=== PATIENT | male | born 1985 | race African-American/Black ===

== ENCOUNTER 2017-01-23 14:17 | Emergency (ER) | payer SELFPAY ==
[~2017-01-23] VITALS: Ht 172.7 cm; Wt 95.3 kg
[2017-01-23 14:35] VITALS: BP 142/92
[2017-01-23] MEDS ORDERED: IBUP-1060 PO (14:46)
[2017-01-23] MEDS ORDERED: AMOX875T PO (14:46)
[2017-01-23] MEDS ORDERED: CHLO15MO2 PO (14:46)
--- NOTE | 2017-01-23 15:12 | PHYS DOC ---
Past Medical History Past Medical History: No Pertinent History Past Surgical History: Other Additional Past Surgical Histo: L) rotator cuff, testicle Alcohol Use: Occasionally Drug Use: None Adult General Chief Complaint Chief Complaint: EARACHE/EAR PAIN HPI HPI Patient is a 31 year old male who presents with left ear pain, symptoms of 3 weeks, also with dental pain, no fevers. He attempted Tylenol that improved his symptoms but then his symptoms returned. It is not been seen by primary care physician, reports he's never been seen by dentist. Review of Systems Review of Systems Constitutional: Denies fever or chills [] Eyes: Denies change in visual acuity, redness, or eye pain [] HENT: Reports allergies with runny nose Respiratory: Denies cough or shortness of breath [] Cardiovascular: Denies Chest pain GI: Denies abdominal pain, nausea, vomiting, bloody stools or diarrhea [] : Denies dysuria or hematuria [] Musculoskeletal: Denies back pain or joint pain [] Integument: Denies rash or skin lesions [] Neurologic: Denies headache, focal weakness or sensory changes [] Allergies Allergies Allergies Coded Allergies Type Severity Reaction Last Updated Verified No Known Drug Allergies 03/01/14 No Physical Exam Physical Exam Constitutional: Well developed, well nourished, no acute distress, non-toxic appearance. [] HENT: Normocephalic, atraumatic, bilateral external ears normal, oropharynx moist, poor dentition throughout with fractured tooth number ~11 with surrounding erythema of the buccal fold, decay, left-sided facial swelling, no trismus, uvula rises midline, left TM is full of fluid, normal light reflex, no significant external tenderness to palpation Eyes: PERRLA, EOMI, conjunctiva normal, no discharge. [] Neck: Normal range of motion, no tenderness, supple, no stridor. [] Cardiovascular:Heart rate regular rhythm, no murmur [] Lungs & Thorax: Bilateral breath sounds clear to auscultation [] Abdomen: Bowel sounds normal, soft, no tenderness, no masses, no pulsatile masses. [] Skin: Warm, dry, no erythema, no rash. [] Back: No tenderness, no CVA tenderness. [] Extremities: No tenderness, no cyanosis, no clubbing, ROM intact, no edema. [] Neurologic: Alert and oriented X 3, normal motor function, normal sensory function, no focal deficits noted. [] Psychologic: Affect normal, judgement normal, mood normal. [] Current Patient Data Vital Signs Vital Signs Date Time Temp Pulse Resp B/P (MAP) Pulse Ox O2 Delivery O2 Flow Rate FiO2 01/23/17 14:35 98.4 99 18 99 Room Air 98.4 EKG EKG [] Radiology/Procedures Radiology/Procedures [] Course & Med Decision Making Course & Med Decision Making Pertinent Labs and Imaging studies reviewed. (See chart for details) Patient has a dental abscess, likely causing some referral of pain to his ear. We'll treat with amoxicillin and Peridex, dental resource list given. Return precautions given, work note, ibuprofen prescription. Dragon Disclaimer Dragon Disclaimer This electronic medical record was generated, in whole or in part, using a voice recognition dictation system. Departure Departure Impression: Primary Impression: Dental infection Disposition: HOME, SELF-CARE Condition: STABLE Patient Instructions: Dental Abscess, Form - Excuse from Work, School, or Physical Activity Scripts Chlorhexidine Gluconate (PERIDEX) 15 Ml Mouthwash 15-30 ML PO BID, #473 ML 3 Refills swish and spit Prov: ISREAL ALEXANDRE MD 01/23/17 Amoxicillin (AMOXICILLIN) 875 Mg Tablet 1 TAB PO BID, #20 TAB Prov: ISRAEL ALEXANDRE MD 01/23/17 Ibuprofen (IBUPROFEN) 800 Mg Tablet 800 MG PO PRN TID Y for PAIN, #20 TAB take with food or milk to avoid upsetting stomach Prov: ISRAEL ALEXANDRE MD 01/23/17 ISRAEL ALEXANDRE MD January 23, 2017 15:12
== END 2017-01-23 14:54 | disposition home or self-care (01) ==
LOC: ER 14:17
DX: K04.7 Periapical abscess without sinus (principal)
CPT/HCPCS: 99283

== ENCOUNTER 2018-08-02 21:35 | Emergency (ER) | payer BC ==
[~2018-08-02] VITALS: Ht 172.7 cm; Wt 95.3 kg
[~2018-08-02 21:35] MED LIST: AMOX875T PO; CHLO15MO2 PO; IBUP-1060 PO
[2018-08-02 21:49] VITALS: BP 131/76
[2018-08-02] MEDS ORDERED: ASPIRIN 325 MG TABLET PO ONE (22:00)
--- NOTE | 2018-08-02 22:05 | PHYS DOC ---
Past Medical History Past Medical History: No Pertinent History Past Surgical History: Other Additional Past Surgical Histo: L) rotator cuff, testicle Alcohol Use: Occasionally Drug Use: None Adult General Chief Complaint Chief Complaint: CHEST WALL PAIN HPI HPI Patient is a 32 year old male with no significant medical history who presents to the ED today complaining of 5 out of 10 intermittent sharp left-sided chest pain that began 30 minutes prior to coming to the ED. Patient denies anything exacerbating or making his pain better. He states he was sitting down watching a movie when the pain began. Patient denies the pain radiating. Denies any fever coughing or congestion. Patient denies any history of family members dying before the age of 50 from sudden cardiac arrest. Review of Systems Review of Systems Constitutional: Denies fever or chills [] Eyes: Denies change in visual acuity, redness, or eye pain [] HENT: Denies nasal congestion or sore throat [] Respiratory: Denies cough or shortness of breath [] Cardiovascular: Reports left sided chest pain. GI: Denies abdominal pain, nausea, vomiting, bloody stools or diarrhea [] : Denies dysuria or hematuria [] Musculoskeletal: Denies back pain or joint pain [] Integument: Denies rash or skin lesions [] Neurologic: Denies headache, focal weakness or sensory changes [] All other systems were reviewed and found to be within normal limits, except as documented in this note. Current Medications Current Medications Current Medications Medications (Trade) Dose Ordered Sig/Janiya Start Time Stop Time Status Last Admin Dose Admin Aspirin (Kandis Aspirin) 325 mg 1X ONCE 08/02/18 22:00 08/02/18 22:01 DC 08/02/18 22:26 325 MG Potassium Chloride (Klor-Con) 40 meq 1X ONCE 08/02/18 22:45 08/02/18 22:46 DC 08/02/18 23:07 40 MEQ Allergies Allergies Allergies Coded Allergies Type Severity Reaction Last Updated Verified No Known Drug Allergies 03/01/14 No Physical Exam Physical Exam Constitutional: Well developed, well nourished, no acute distress, non-toxic appearance. [] HENT: Normocephalic, atraumatic, bilateral external ears normal, oropharynx moist, no oral exudates, nose normal. [] Eyes: PERRLA, EOMI, conjunctiva normal, no discharge. [] Neck: Normal range of motion, no tenderness, supple, no stridor. [] Cardiovascular:Heart rate regular rhythm, no murmur, reproducible left sided chest pain on palpation of the chest Lungs & Thorax: Bilateral breath sounds clear to auscultation [] Abdomen: Bowel sounds normal, soft, no tenderness, no masses, no pulsatile masses. Skin: Warm, dry, no erythema, no rash. [] Back: No tenderness, no CVA tenderness. [] Extremities: No tenderness, no cyanosis, no clubbing, ROM intact, no edema. [] Neurologic: Alert and oriented X 3, normal motor function, normal sensory function, no focal deficits noted. [] Psychologic: Affect normal, judgement normal, mood normal. [] Current Patient Data Vital Signs Vital Signs Date Time Temp Pulse Resp B/P (MAP) Pulse Ox O2 Delivery O2 Flow Rate FiO2 08/02/18 21:49 98.3 98 20 131/76 (94) 97 Room Air 98.3 Lab Values Laboratory Tests Test 08/02/18 22:05 White Blood Count 6.2 x10^3/uL (4.0-11.0) Red Blood Count 4.92 x10^6/uL (4.30-5.70) Hemoglobin 15.5 g/dL (13.0-17.5) Hematocrit 45.7 % (39.0-53.0) Mean Corpuscular Volume 93 fL (79-100) Mean Corpuscular Hemoglobin 31 pg (25-35) Mean Corpuscular Hemoglobin Concent 34 g/dL (31-37) Red Cell Distribution Width 13.6 % (11.5-14.5) Platelet Count 228 x10^3/uL (140-400) Neutrophils (%) (Auto) 47 % (31-73) Lymphocytes (%) (Auto) 43 % (24-48) Monocytes (%) (Auto) 7 % (0-9) Eosinophils (%) (Auto) 3 % (0-3) Basophils (%) (Auto) 1 % (0-3) Neutrophils # (Auto) 2.9 x10^3uL (1.8-7.7) Lymphocytes # (Auto) 2.6 x10^3/uL (1.0-4.8) Monocytes # (Auto) 0.4 x10^3/uL (0.0-1.1) Eosinophils # (Auto) 0.2 x10^3/uL (0.0-0.7) Basophils # (Auto) 0.0 x10^3/uL (0.0-0.2) Sodium Level 142 mmol/L (136-145) Potassium Level 3.2 mmol/L (3.5-5.1) L Chloride Level 108 mmol/L (98-107) H Carbon Dioxide Level 25 mmol/L (21-32) Anion Gap 9 (6-14) Blood Urea Nitrogen 10 mg/dL (8-26) Creatinine 1.1 mg/dL (0.7-1.3) Estimated GFR (Cockcroft-Gault) 93.3 Glucose Level 106 mg/dL (70-99) H Calcium Level 8.6 mg/dL (8.5-10.1) Magnesium Level 1.9 mg/dL (1.8-2.4) Troponin I Quantitative < 0.017 ng/mL (0.000-0.055) Laboratory Tests 08/02/18 22:05 Laboratory Tests 08/02/18 22:05 EKG EKG 22:[address] Ludwig sinus rhythm heart rate 88 no STEMI[] Radiology/Procedures Radiology/Procedures [] Course & Med Decision Making Course & Med Decision Making Pertinent Labs and Imaging studies reviewed. (See chart for details) This is a 32-year-old male patient presenting to the ED today with left-sided chest pain that began 30 minutes prior to coming to the ED. EKG, troponin, CBC with no acute findings, chest x-ray interpreted by Dr. Ludwig is negative for any acute findings. BMP with potassium of 3.2, patient was given oral potassium replacement. Patient is in no distress. He was discharged to home. Instructed to take Tylenol Motrin for pain. Follow-up with his own doctor or the provided outside sales representative insurance in the course of this week. Dragon Disclaimer Dragon Disclaimer This electronic medical record was generated, in whole or in part, using a voice recognition dictation system. Departure Departure Impression: Primary Impression: Chest pain Disposition: HOME, SELF-CARE Condition: STABLE Referrals: NO PCP (PCP) MIRIAN COLLINS MD follow up in the course of this week Patient Instructions: Chest Pain (Nonspecific), [id number] Additional Instructions: You were evaluated in the emergency room for chest pain. We could not find any acute cause for your chest pain your work up was negative for any acute findings. Take Tylenol/Motrin for pain. Follow-up with your own doctor in the course of this week, you can also follow up with the provided doctor. Problem Qualifiers Primary Impression: Chest pain Chest pain type: unspecified Qualified Codes: R07.9 - Chest pain, unspecified SILVIANO SINCLAIR APRN Aug 02, 2018 22:05
[2018-08-02 22:18] LABS: BASO % 1 % (0-3); EOS # 0.2 x10^3/uL (0.0-0.7); EOS % 3 % (0-3); HEMATOCRIT 45.7 % (39.0-53.0); HEMOGLOBIN 15.5 g/dL (13.0-17.5); LYMPH # 2.6 x10^3/uL (1.0-4.8); LYMPH % 43 % (24-48); MEAN CORPUSCULAR HEMOGLOBIN 31 pg (25-35); MEAN CORPUSCULAR HGB CONC 34 g/dL (31-37); MEAN CORPUSCULAR VOLUME 93 fL (79-100); MONO # 0.4 x10^3/uL (0.0-1.1); MONO % 7 % (0-9); NEUT # 2.9 x10^3uL (1.8-7.7); NEUT % 47 % (31-73); PLATELET COUNT 228 x10^3/uL (140-400); RED BLOOD COUNT 4.92 x10^6/uL (4.30-5.70); RED CELL DISTRIBUTION WIDTH 13.6 % (11.5-14.5); WHITE BLOOD COUNT 6.2 x10^3/uL (4.0-11.0)
[2018-08-02 22:25] LABS: CALCIUM 8.6 mg/dL (8.5-10.1); CREATININE 1.1 mg/dL (0.7-1.3); GFR 93.3; MAGNESIUM 1.9 mg/dL (1.8-2.4); POTASSIUM 3.2 mmol/L (3.5-5.1)
[2018-08-02] MEDS ORDERED: POTASSIUM CHLORIDE 20 MEQ TABLET.ER. PO ONE (22:45)
--- NOTE | 2018-08-03 00:38 | RAD ---
Chest radiograph 08/02/2018 9:49 PM INDICATION: Chest pain COMPARISON: Chest radiograph January 30, 2015 TECHNIQUE: Frontal view of the chest is provided. FINDINGS: The cardiomediastinal silhouette is within normal limits. There are no pleural effusions. There is no pulmonary vascular congestion. There is no pneumothorax. The lungs are clear. No significant osseous abnormality is identified. IMPRESSION: No acute cardiopulmonary process. Electronically signed by: Coretta Díaz MD (08/03/2018 12:35 AM) [facility]
--- NOTE | 2018-08-03 07:10 | EKG ---
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
== END 2018-08-02 23:36 | disposition home or self-care (01) ==
LOC: ER 21:35
DX: R07.89 Other chest pain (principal)
CPT/HCPCS: 36415; 71045; 80048; 83735; 84484; 85025; 93005; 99283; 99285

== ENCOUNTER 2018-11-03 19:02 | Emergency (ER) | payer SELFPAY ==
[~2018-11-03] VITALS: Ht 172.7 cm; Wt 86.2 kg
[2018-11-03 19:30] VITALS: BP 143/77
[2018-11-03] MEDS ORDERED: TRAM50TA PO (19:43)
[2018-11-03] MEDS ORDERED: CYCL5TAB PO (19:43)
--- NOTE | 2018-11-03 19:49 | PHYS DOC ---
Past Medical History Past Medical History: No Pertinent History (SY BOYKIN APRN) Past Surgical History: Other Additional Past Surgical Histo: L) rotator cuff, testicle (SY BOYKIN APRN) Alcohol Use: Occasionally Drug Use: None (SY BOYKIN APRN) Adult General Chief Complaint Chief Complaint: LOWER BACK PAIN OR INJURY [employer] HPI Patient is a 33 year old male who presents with back pain after he fell earlier today on the ice. The patient states that the pain is been increasing as the day has progressed. He has tried [id number] pain reliever with no relief. He denies spontaneous loss of bowel or bladder, saddle numbness or foot drop. (SY BOYKIN APRN) Review of Systems Review of Systems Constitutional: Denies fever or chills [] Respiratory: Denies cough or shortness of breath [] Cardiovascular: No additional information not addressed in HPI [] GI: Denies abdominal pain, nausea, vomiting, bloody stools or diarrhea [] : Denies dysuria or hematuria [] Musculoskeletal: See history of present illness Integument: Denies rash or skin lesions [] Neurologic: Denies headache, focal weakness or sensory changes [] Endocrine: Denies polyuria or polydipsia [] All other systems were reviewed and found to be within normal limits, except as documented in this note. (SY BOYKIN APRN) Allergies Allergies Allergies Coded Allergies Type Severity Reaction Last Updated Verified No Known Drug Allergies 03/01/14 No (JAMES MANN MD) Physical Exam Physical Exam Constitutional: Well developed, well nourished, no acute distress, non-toxic appearance. [] Cardiovascular:Heart rate regular rhythm, no murmur [] Lungs & Thorax: Bilateral breath sounds clear to auscultation [] Abdomen: Bowel sounds normal, soft, no tenderness, no masses, no pulsatile masses. [] Skin: Warm, dry, no erythema, no rash. [] Back: No point spinal tenderness, no gross deformities or step-offs noted, pain to the left paraspinous muscles with palpation, no CVA tenderness. [] Extremities: No tenderness, no cyanosis, no clubbing, ROM intact, no edema. [] Neurologic: Alert and oriented X 3, normal motor function, normal sensory function, no focal deficits noted. [] Psychologic: Affect normal, judgement normal, mood normal. [] (SY BOYKIN APRN) Current Patient Data Vital Signs Vital Signs Date Time Temp Pulse Resp B/P (MAP) Pulse Ox O2 Delivery O2 Flow Rate FiO2 11/03/18 19:30 98.0 93 16 143/77 (99) 98 Room Air 98.0 (JAMES MANN MD) EKG EKG [] (SY BOYKIN APRN) Radiology/Procedures Radiology/Procedures [] (SY BOYKIN APRN) Course & Med Decision Making Course & Med Decision Making Pertinent Labs and Imaging studies reviewed. (See chart for details) [] (SY BOYKIN APRN) Course & Med Decision Making Staff Physician Addendum: I was working in the ER during the course of this patient's visit. I was available for consultation as needed, but I was not directly involved in the care of this patient. (JAMES MANN MD) Dragon Disclaimer Dragon Disclaimer This electronic medical record was generated, in whole or in part, using a voice recognition dictation system. (SY BOYKIN APRN) Departure Departure Impression: Primary Impression: Back pain Additional Impression: Fall Disposition: HOME, SELF-CARE Condition: STABLE Referrals: NO PCP (PCP) Patient Instructions: Back Pain, Adult Additional Instructions: Take the medications as directed. They may impair you or make you very sleepy. Do not drive or operate heavy machinery while taking this medication. Follow-up with your primary care provider in one week for recheck if not improving or return to the emergency department if worsening. Scripts Tramadol Hcl (TRAMADOL HCL) 50 Mg Tablet 50 MG PO DAILY PRN for PAIN, #14 TAB 0 Refills Prov: SY BOYKIN APRN 11/03/18 Cyclobenzaprine Hcl (CYCLOBENZAPRINE HCL) 5 Mg Tablet 1 TAB PO QHS for back pain, #30 TAB Prov: SY BOYKIN APRN 11/03/18 Problem Qualifiers SY BOYKIN APRN Nov 03, 2018 19:49 JAMES MANN MD Nov 04, 2018 05:19
== END 2018-11-03 19:53 | disposition home or self-care (01) ==
LOC: ER 19:02
DX: M54.5 Low back pain (principal); W17.89XA Other fall from one level to another, initial encounter; Y93.89 Activity, other specified; Y92.009 Unspecified place in unspecified non-institutional (private) residence as the place of occurrence of the external cause; Y99.8 Other external cause status
CPT/HCPCS: 99283

== ENCOUNTER 2019-01-26 10:40 | Emergency (ER) | payer BC, SELFPAY ==
[~2019-01-26] VITALS: Ht 172.7 cm; Wt 88.5 kg
[~2019-01-26 10:40] MED LIST changes: +CYCL5TAB PO; +TRAM50TA PO
[2019-01-26] MEDS ORDERED: ASPIRIN 325 MG TABLET PO ONE (11:15)
--- NOTE | 2019-01-26 11:22 | RAD ---
Single view chest dated 01/26/2019: Comparison made to 08/02/2018. Clinical Indication: Chest pain. Findings: Single upright portable exam of the chest was performed. Heart size and mediastinal contours are within normal limits given technique. The lungs are clear without evidence of focal consolidation. Vascular interstitium is within normal limits. Impression:: Negative portable chest. Electronically signed by: Andre Nroth MD (01/26/2019 11:19 AM) [facility]
[2019-01-26 11:30] LABS: CALCIUM 8.7 mg/dL (8.5-10.1); CREATININE 1.1 mg/dL (0.7-1.3); GFR 92.7; POTASSIUM 4.1 mmol/L (3.5-5.1)
[2019-01-26 11:31] LABS: MAGNESIUM 1.9 mg/dL (1.8-2.4)
[2019-01-26 11:32] LABS: BASO # 0.1 x10^3/uL (0.0-0.2); BASO % 1 % (0-3); EOS # 0.2 x10^3/uL (0.0-0.7); EOS % 4 % (0-3); HEMATOCRIT 49.9 % (39.0-53.0); HEMOGLOBIN 16.7 g/dL (13.0-17.5); LYMPH # 2.4 x10^3/uL (1.0-4.8); LYMPH % 43 % (24-48); MEAN CORPUSCULAR HEMOGLOBIN 31 pg (25-35); MEAN CORPUSCULAR HGB CONC 33 g/dL (31-37); MEAN CORPUSCULAR VOLUME 93 fL (79-100); MONO # 0.3 x10^3/uL (0.0-1.1); MONO % 6 % (0-9); NEUT # 2.6 x10^3uL (1.8-7.7); NEUT % 46 % (31-73); PLATELET COUNT 221 x10^3/uL (140-400); RED BLOOD COUNT 5.37 x10^6/uL (4.30-5.70); RED CELL DISTRIBUTION WIDTH 13.7 % (11.5-14.5); WHITE BLOOD COUNT 5.6 x10^3/uL (4.0-11.0)
[2019-01-26 12:54] LABS: BARBITURATES NEG (NEG); BENZODIAZEPINES NEG (NEG); CANNABINOIDS NEG (NEG); COCAINE NEG (NEG); METHADONE NEG (NEG); OPIATES NEG (NEG); PHENCYCLIDINE NEG (NEG)
[2019-01-26 12:55] LABS: AMPHETAMINE/METHAMPHETAMINE NEG (NEG)
--- NOTE | 2019-01-26 13:16 | PHYS DOC ---
Past Medical History Past Medical History: No Pertinent History (SILVIANO SINCLAIR APRN) Past Surgical History: Other Additional Past Surgical Histo: L) rotator cuff, testicle (SILVIANO SINCLAIR APRN) Additional Information: SMOKES 3 BLACK & MILDS DAILY Alcohol Use: Occasionally Drug Use: None (SILVIANO SINCLAIR APRN) Adult General Chief Complaint Chief Complaint: CHEST PAIN HPI HPI Patient is a 33 year old male with no significant medical history who presents to the ED today complaining of substernal sharp 8 out of 10 chest pain that began yesterday at 10 PM and has been going on intermittently since then. Patient denies anything specifically exacerbating or relieving the pain. He states he has had this pain multiple times before. He states he was checked out for the pain a couple years ago and they could not find any acute source. He states he is a current smoker. (SILVIANO SINCLAIR APRN) Review of Systems Review of Systems Constitutional: Denies fever or chills [] Eyes: Denies change in visual acuity, redness, or eye pain [] HENT: Denies nasal congestion or sore throat [] Respiratory: Denies cough or shortness of breath [] Cardiovascular: Reports chest pain GI: Denies abdominal pain, nausea, vomiting, bloody stools or diarrhea [] : Denies dysuria or hematuria [] Musculoskeletal: Denies back pain or joint pain [] Integument: Denies rash or skin lesions [] Neurologic: Denies headache, focal weakness or sensory changes [] All other systems were reviewed and found to be within normal limits, except as documented in this note. (SILVIANO SINCLAIR APRN) Current Medications Current Medications Current Medications Medications (Trade) Dose Ordered Sig/Janiya Start Time Stop Time Status Last Admin Dose Admin Aspirin (Kandis Aspirin) 325 mg 1X ONCE 01/26/19 11:15 01/26/19 11:16 UNV (WILIAN HUNG MD) Allergies Allergies Allergies Coded Allergies Type Severity Reaction Last Updated Verified aspirin Allergy Intermediate MILD FACIAL SWELLING 01/26/19 Yes (WILIAN HUNG MD) Physical Exam Physical Exam Constitutional: Well developed, well nourished, no acute distress, non-toxic appearance. [] HENT: Normocephalic, atraumatic, bilateral external ears normal, oropharynx moist, no oral exudates, nose normal. [] Eyes: PERRLA, EOMI, conjunctiva normal, no discharge. [] Neck: Normal range of motion, no tenderness, supple, no stridor. [] Cardiovascular:Heart rate regular rhythm, no murmur [] Lungs & Thorax: Bilateral breath sounds clear to auscultation [] Abdomen: Bowel sounds normal, soft, no tenderness, no masses, no pulsatile masses. [] Skin: Warm, dry, no erythema, no rash. [] Back: No tenderness, no CVA tenderness. [] Extremities: No tenderness, no cyanosis, no clubbing, ROM intact, no edema. [] Neurologic: Alert and oriented X 3, normal motor function, normal sensory function, no focal deficits noted. [] Psychologic: Affect normal, judgement normal, mood normal. [] (SILVIANO SINCLAIR APRN) Current Patient Data Vital Signs Vital Signs Date Time Temp Pulse Resp B/P (MAP) Pulse Ox O2 Delivery O2 Flow Rate FiO2 01/26/19 13:24 65 16 112/73 (86) 99 Room Air 01/26/19 10:46 98.4 98.4 (WILIAN HUNG MD) Lab Values Laboratory Tests Test 01/26/19 11:06 01/26/19 12:15 White Blood Count 5.6 x10^3/uL (4.0-11.0) Red Blood Count 5.37 x10^6/uL (4.30-5.70) Hemoglobin 16.7 g/dL (13.0-17.5) Hematocrit 49.9 % (39.0-53.0) Mean Corpuscular Volume 93 fL (79-100) Mean Corpuscular Hemoglobin 31 pg (25-35) Mean Corpuscular Hemoglobin Concent 33 g/dL (31-37) Red Cell Distribution Width 13.7 % (11.5-14.5) Platelet Count 221 x10^3/uL (140-400) Neutrophils (%) (Auto) 46 % (31-73) Lymphocytes (%) (Auto) 43 % (24-48) Monocytes (%) (Auto) 6 % (0-9) Eosinophils (%) (Auto) 4 % (0-3) H Basophils (%) (Auto) 1 % (0-3) Neutrophils # (Auto) 2.6 x10^3uL (1.8-7.7) Lymphocytes # (Auto) 2.4 x10^3/uL (1.0-4.8) Monocytes # (Auto) 0.3 x10^3/uL (0.0-1.1) Eosinophils # (Auto) 0.2 x10^3/uL (0.0-0.7) Basophils # (Auto) 0.1 x10^3/uL (0.0-0.2) D-Dimer (Amanda) 0.28 ug/mlFEU (0.00-0.50) Sodium Level 140 mmol/L (136-145) Potassium Level 4.1 mmol/L (3.5-5.1) Chloride Level 105 mmol/L (98-107) Carbon Dioxide Level 25 mmol/L (21-32) Anion Gap 10 (6-14) Blood Urea Nitrogen 14 mg/dL (8-26) Creatinine 1.1 mg/dL (0.7-1.3) Estimated GFR (Cockcroft-Gault) 92.7 Glucose Level 97 mg/dL (70-99) Calcium Level 8.7 mg/dL (8.5-10.1) Magnesium Level 1.9 mg/dL (1.8-2.4) Troponin I Quantitative < 0.017 ng/mL (0.000-0.055) TF-Ccr-W-Type Natriuretic Peptide 10 pg/mL (0-124) Thyroid Stimulating Hormone (TSH) 0.785 uIU/mL (0.358-3.74) Urine Opiates Screen Neg (NEG) Urine Methadone Screen Neg (NEG) Urine Barbiturates Neg (NEG) Urine Phencyclidine Screen Neg (NEG) Urine Amphetamine/Methamphetamine Neg (NEG) Urine Benzodiazepines Screen Neg (NEG) Urine Cocaine Screen Neg (NEG) Urine Cannabinoids Screen Neg (NEG) Urine Ethyl Alcohol Neg (NEG) Laboratory Tests 01/26/19 11:06 Laboratory Tests 01/26/19 11:06 (WILIAN HUNG MD) EKG EKG 10:[address] Hung sinus rhythm Hr 74 no STEMI[] (SILVIANO SINCLAIR APRN) Radiology/Procedures Radiology/Procedures []PROCEDURE: PORTABLE CHEST 1V Single view chest dated 01/26/2019: Comparison made to 08/02/2018. Clinical Indication: Chest pain. Findings: Single upright portable exam of the chest was performed. Heart size and mediastinal contours are within normal limits given technique. The lungs are clear without evidence of focal consolidation. Vascular interstitium is within normal limits. Impression:: Negative portable chest. Electronically signed by: Andre North MD (01/26/2019 11:19 AM) [facility] DICTATED and SIGNED BY: ANDRE NORTH MD DATE: 01/26/19 1119 (SILVIANO SINCLAIR APRN) Course & Med Decision Making Course & Med Decision Making Pertinent Labs and Imaging studies reviewed. (See chart for details) This is a 33-year-old male patient with history of smoking presenting today complaining of chest pain since last night. Cardiac workup is negative including a normal d-dimer. Vitals are stable. Patient has history of similar chest pain. 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 Provided return precautions. Discharged in stable condition. Encouraged to consider smoking cessation. (SILVIANO SINCLAIR APRN) Course & Med Decision Making Patient was seen by EDGAR, I did not evaluate the patient unless otherwise specified in the chart. (WILIAN HUNG MD) Dragon Disclaimer Dragon Disclaimer This electronic medical record was generated, in whole or in part, using a voice recognition dictation system. (SILVIANO SINCLAIR APRN) Departure Departure Impression: Primary Impression: Chest pain Additional Impression: Smoking addiction Disposition: HOME, SELF-CARE Condition: STABLE Referrals: NO PCP (PCP) MIRIAN COLLINS MD Follow-up in the course of this week Patient Instructions: Chest Pain (Nonspecific), Smoking Cessation Additional Instructions: You were evaluated in the emergency for chest pain, we could not find any acute cause for your pain. Please follow-up with the thread milling machine set up operator and your primary c are doctor. Take [id number] pain relievers as needed. Problem Qualifiers Primary Impression: Chest pain Chest pain type: unspecified Qualified Codes: R07.9 - Chest pain, unspecified SILVIANO SINCLAIR APRN January 26, 2019 13:16 WILIAN HUNG MD January 26, 2019 17:22
[2019-01-26 13:24] VITALS: BP 112/73
--- NOTE | 2019-01-26 14:29 | EKG ---
[facility] [address] [place] [address] Test Date: 2019-01-26 Test Time: 10:53:01 Pat Name: ERICA BURK Department: Room: Gender: Post Acute Care Nurse Practitioner: : 1985 Requested By: SILVIANO SINCLAIR Order Number: [id number] Reading MD: Jorge Baltazar Measurements Intervals [place] Rate: P: [place]: QRS: QRSD: T: QT: QTc: Interpretive Statements Compared to ECG 08/02/2018 22:07:05 Sinus rhythm Old septal infarct Electronically Signed On 02-19-2019 11:47:34 CDT by Jorge Baltazar
== END 2019-01-26 13:24 | disposition home or self-care (01) ==
LOC: ER 10:40
DX: R07.89 Other chest pain (principal); F17.210 Nicotine dependence, cigarettes, uncomplicated; Z88.6 Allergy status to analgesic agent
CPT/HCPCS: 36415; 71045; 80048; 80307; 83735; 83880; 84443; 84484; 85025; 85379; 93005; 99285-25

== ENCOUNTER 2019-05-27 07:45 | Emergency (ER) | payer BC ==
[~2019-05-27] VITALS: Ht 172.7 cm; Wt 80.7 kg
[2019-05-27 07:47] VITALS: BP 112/73
--- NOTE | 2019-05-27 07:58 | PHYS DOC ---
Past Medical History Past Medical History: No Pertinent History Past Surgical History: Other Additional Past Surgical Histo: L) rotator cuff, testicle Smoking: Cigarettes Alcohol Use: Occasionally Drug Use: None Adult General Chief Complaint Chief Complaint: COUGH HPI HPI patient is a 33-year-old male who presents to the emergency department for evaluation, of 2 days of nasal congestion, and a nonproductive cough. He reports shortness of breath, primarily when trying to breathe through his nose. He has not had any pain other than his nasal congestion. Has not had any headache, fever, otalgia, sore throat, pleuritic pain, chest pain, nausea, or vomiting. There are no alleviating or exacerbating factors to his symptoms. Review of Systems Review of Systems Constitutional: Denies fever or chills [] Eyes: Denies change in visual acuity, redness, or eye pain [] HENT reports nasal congestion. Denies otalgia or sore throat [] Respiratory: Denies pleuritic pain or shortness of breath [] Cardiovascular:The patient denies any shortness of breath, chest pain, palpitations, or orthopnea[] GI: Denies abdominal pain, nausea, vomiting, bloody stools or diarrhea [] Musculoskeletal: Denies back pain or joint pain, denies myalgia[] Integument: Denies rash or skin lesions [] Neurologic: Denies headache, focal weakness or sensory changes [] Allergies Allergies Allergies Coded Allergies Type Severity Reaction Last Updated Verified aspirin Allergy Intermediate MILD FACIAL SWELLING 01/26/19 Yes Physical Exam Physical Exam PHYSICAL EXAM: CONSTITUTIONAL: Well developed, well nourished HEAD: normocephalic, atraumatic EENT: PERRL, EOMI. Conjunctivae normal color, sclerae non-icteric; moist mucous membranes. Oropharynx is unremarkable, airways patent. Nasal congestion is noted. NECK: Supple, non-tender; no meningismus. LUNGS: Lungs CTA, breathing even and unlabored. Normal air movement. HEART: Regular rate and rhythm, no murmur CHEST: No deformity; non-tender ABDOMEN: The abdomen is soft, and non-tender, no masses or bruits. EXTREM: Normal ROM; no deformity, no calf tenderness. Normal pulses palpable in all extremities. There is no pedal edema. SKIN: No rash; no diaphoresis NEURO: Alert; normal speech and cognition; CN's grossly intact; strength grossly intact without focal deficit. BACK: No CVA TTP. EKG EKG [] Radiology/Procedures Radiology/Procedures [] Course & Med Decision Making Course & Med Decision Making I discussed expectant management with the patient, symptomatic treatment with [id number] decongestants and antitussives, the need for PCP follow-up and return precautions. Discussed marginally elevated blood pressure and the need for further outpatient monitoring. Dragon Disclaimer Dragon Disclaimer This electronic medical record was generated, in whole or in part, using a voice recognition dictation system. Departure Departure Impression: Primary Impression: Upper respiratory infection Disposition: HOME, SELF-CARE Condition: STABLE Patient Instructions: Upper Respiratory Infection, Adult Additional Instructions: Return to medical care for any new or worsening symptoms, development of increasing trouble breathing, fevers, pain, or any other new or concerning symptoms. MICHAEL HI MD May 27, 2019 07:58
== END 2019-05-27 08:02 | disposition home or self-care (01) ==
LOC: ER 07:45
DX: J06.9 Acute upper respiratory infection, unspecified (principal); F17.210 Nicotine dependence, cigarettes, uncomplicated; Z88.6 Allergy status to analgesic agent
CPT/HCPCS: 99281

== ENCOUNTER 2020-05-10 01:36 | Emergency (ER) | payer BC, OTHER ==
[~2020-05-10] VITALS: Ht 172.7 cm; Wt 87.2 kg
--- NOTE | 2020-05-10 02:21 | PHYS DOC ---
Past Medical History Past Medical History: No Pertinent History Past Surgical History: Other Additional Past Surgical Histo: L) rotator cuff, testicle Smoking Status: Current Every Day Smoker Alcohol Use: Occasionally Drug Use: None General Adult EDM: Chief Complaint: SHORTNESS OF BREATH HPI: HPI: The history was obtained from the patient. Patient is a 34-year-old male with PMH tobacco abuse who presents with a chief complaint of cough and shortness of breath. Patient states he has had a dry cough over the past 3 to 4 days. He states that 3 individuals were noted to be positive for coronavirus at work. He is unsure of if he has been in close contact with him as his employer has not divulge the names of those individuals. He has had some chest burning sensation. He states it is present all the time but worse with coughing. He notes the shortness of breath seems to be progressively worsening. Denies any objective fevers at home. Does report chills. Has tried Mucinex medication with minimal relief. Denies syncope. Denies vomiting. However he does note a lack of appetite. Denies any loss of smell or taste. Does note a mild sore throat. Reports congestion. No other complaints. Review of Systems: Review of Systems: Constitutional: Denies fever or chills. [] Eyes: Denies change in visual acuity. [] HENT: Positive for nasal congestion and sore throat Respiratory: Positive for cough and shortness of breath Cardiovascular: Positive for chest pain GI: Denies abdominal pain, nausea, vomiting, bloody stools or diarrhea. [] : Denies dysuria. [] Musculoskeletal: Denies back pain or joint pain. [] Integument: Denies rash. [] Neurologic: Denies headache, focal weakness or sensory changes. [] Endocrine: Denies polyuria or polydipsia. [] Lymphatic: Denies swollen glands. [] Psychiatric: Denies depression or anxiety. [] Heart Score: Risk Factors: Risk Factors: DM, Current or recent (<one month) smoker, HTN, HLP, family history of CAD, obesity. Risk Scores: Score 0 - 3: 2.5% MACE over next 6 weeks - Discharge Home Score 4 - 6: 20.3% MACE over next 6 weeks - Admit for Clinical Observation Score 7 - 10: 72.7% MACE over next 6 weeks - Early Invasive Strategies Allergies: Allergies: Allergies Coded Allergies Type Severity Reaction Last Updated Verified aspirin Allergy Intermediate MILD FACIAL SWELLING 01/26/19 Yes Physical Exam: PE: Constitutional: Well developed, well nourished, no acute distress, non-toxic appearance. [] HENT: Normocephalic, atraumatic, bilateral external ears normal, oropharynx moist, no oral exudates, nose normal. [] Eyes: PERRLA, EOMI, conjunctiva normal, no discharge. [] Neck: Normal range of motion, no tenderness, supple, no stridor. [] Cardiovascular:Heart rate regular rhythm, no murmur [] Lungs & Thorax: Lungs clear to auscultation bilaterally. No wheezes appreciated. Not tachypneic. No accessory muscle usage. Abdomen: soft, no tenderness, no masses, no pulsatile masses. [] Skin: Warm, dry, no erythema, no rash. [] Back: No tenderness, no CVA tenderness. [] Extremities: No tenderness, no cyanosis, no clubbing, ROM intact, no edema. [] Neurologic: Alert and oriented X 3, normal motor function, normal sensory function, no focal deficits noted. [] Psychologic: Affect normal, judgement normal, mood normal. [] EKG: EKG: [] Radiology/Procedures: Radiology/Procedures: [] Course & Med Decision Making: Course & Med Decision Making Pertinent Labs and Imaging studies reviewed. (See chart for details) Patient is a 34-year-old male who presents with chief complaint of shortness of breath and cough. He also notes a several other infectious-like symptoms including sore throat, congestion. COVID swab was obtained and is pending. Chest x-ray obtained showing no focal consolidation. Symptoms likely viral nature. This could represent coronavirus given he states people at work were positive for this. At this time patient is overall nontoxic-appearing. His vital signs remained stable. He has a normal oxygen saturation on room air. He has tolerated p.o. He does feel comfortable with outpatient management. He was given strict return precautions to which she expressed understanding. He will be discharged home with supportive care measures. Quarantine instructions are given. Stable for discharge home. COVID-19 CRITERIA: The patient was evaluated during the global COVID-19 pandemic, and that diagnosis was suspected/considered upon their initial presentation. Their evaluation, treatment and testing was consistent with current guidelines for patients who present with complaints or symptoms that may be related to COVID-19. Stevo Disclaimer: Dragjesus alberto Disclaimer: This electronic medical record was generated, in whole or in part, using a voice recognition dictation system. Departure Departure Impression: Primary Impression: Suspected COVID-19 virus infection Additional Impressions: Cough Shortness of breath Nasal congestion Disposition: 01 HOME, SELF-CARE Condition: STABLE Referrals: NO PCP (PCP) Additional Instructions: You have been tested for or diagnosed with COVID-19. It is an infection caused by a new type of coronavirus. COVID-19 will cause cold-like or mild flu symptoms in most. It can cause more severe symptoms like problems breathing in some. There is no treatment for COVID-19. The body will clear the infection over time. Self-care will help to ease discomfort. Steps to Take: Self-Care Rest as needed. Healthy habits may help you feel better. Steps include: Choose healthy foods including fruits and vegetables. Drink water throughout the day. Get plenty of sleep each night. If you smoke, try to quit. It may ease breathing. Avoid alcohol. Keep Others Healthy The virus can spread to others. Droplets are released every time you sneeze or cough. The droplets can get into the mouth, nose, or eyes of people near you and lead to infection. To lower the chances of spreading COVID-19 to others: Stay at home until your doctor has said it is safe to leave. If you tested positive this will mean staying isolated until both of the following are true: At least 7 days have passed since the start of illness. You are free of fever for at least 72 hours without the use of medicine. During this time: - Avoid public areas, events, or transportation. Do not return to work or school until your doctor has said it is safe to do so. - Call ahead if you need to go to a medical center. Let them know you may have COVID-19. It will help them guide you where to go. They may also ask you to wear a facemask when you come to the office. - If you call for emergency medical services, let them know you may have COVID- 19. While at home: - Try to avoid close contact with others. Stay about 6 feet away. - If possible, spend most of your time in a separate room from others. - Use a face mask if you will be in close contact with others such as sharing a room or vehicle. - Have someone wipe down common surfaces in the home. Use household orthodontic band maker every day on areas like doorknobs, counters, or sinks. - Cough or sneeze into a tissue. Throw the tissue away right after use. If a tissue is not available, cough or sneeze into your elbow. - Wash your hands often. Wash them after sneezing or coughing. Use soap and water and wash for at least 20 seconds. Alcohol based hand welt stitch cleaner can be used if soap and water is not available. - Do not prepare food for others. Avoid sharing personal items like forks, spoons, or toothbrushes. - Avoid close contact with pets while you are sick. There is no evidence of the virus passing to pets. This is a safety step until more is known about this virus. Isolation can be frustrating. Social interaction can help. Keep in touch with friends and family through phone and tech options. You can still interact with others in your home, just keep a safe distance of about 6 feet. Follow-up: Your doctors office will check in with you to see if there are any changes in your health. You may be asked to keep track of symptoms to share with them. They will also let you know when you are clear to be in public again. Problems to Look Out For: Contact your doctor if your recovery is not going as you expect. Get emergency care if you have problems such as: - Trouble breathing - Nonstop chest pain or pressure - Changes in awareness, confusion, or problems waking - Lips or face have bluish color - Worsening of symptoms If you think you have an emergency, call for emergency medical services right away. As taken from [facility] [address] [place] [address] [facility] [address] [place] [address] [facility] [address] [place] [address] [facility] [address] [place] [address] [facility] [address] [place] [address] [address] [place] [address] [facility] [address] [place] [address] [facility] [address] [place] [address] [facility] [address] [place] [address] [facility] [address] [place] [address] Scripts Benzonatate (TESSALON PERLE) 100 Mg Capsule 100 MG PO TID PRN for COUGH for 4 Days, #12 CAP Prov: MARGUERITE JOY DO 05/10/20 Fluticasone Propionate (Flonase Allergy Relief) 9.9 Ml [place].susp 2 SPRAYS NS DAILY for 7 Days, #1 BOTTLE Prov: MARGUERITE JOY DO 05/10/20 Ibuprofen (IBUPROFEN) 600 Mg Tablet 600 MG PO PRN Q6HRS PRN for PAIN, #20 TAB take with food or milk Prov: MARGUERITE JOY DO 05/10/20 Justicifation of Admission Dx: Justifications for Admission: Justification of Admission Dx: N/A MARGUERITE JOY DO May 10, 2020 02:21
[2020-05-10] MEDS ORDERED: BENZONATATE 100 MG CAPSULE. PO ONE (02:30)
[2020-05-10] MEDS ORDERED: ACETAMINOPHEN 500 MG TABLET PO ONE (02:30)
[2020-05-10] MEDS ORDERED: IV NORMAL SALINE 1000ML BAG 1,000 ML IV ONE (02:30)
[2020-05-10] MEDS ORDERED: guaiFENesin DM 600/30MG 1 TAB TAB.ER.12H PO ONE (02:45)
--- NOTE | 2020-05-10 02:53 | EKG ---
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
[2020-05-10] MEDS ORDERED: FLUT9.9S NS (03:36)
[2020-05-10] MEDS ORDERED: IBUP-1007 PO (03:36)
[2020-05-10] MEDS ORDERED: BENZ100C PO (03:36)
[2020-05-10 03:45] VITALS: BP 101/55
--- NOTE | 2020-05-10 04:21 | RAD ---
Study: CR CHEST AP ONLY Indication: Shortness of air. Comparison: 01/26/2019 Findings: Unremarkable cardiomediastinal silhouette and michele. No pneumothorax, lobar consolidation or pleural effusion. Impression: No acute radiographic abnormality. Electronically signed by: MANUEL CASIANO MD (05/10/2020 4:17 AM) [id number]
--- NOTE | 2020-05-11 08:41 | NUR ---
IP: Informed pt of negative COVID results. Pt verbalized understanding.
== END 2020-05-10 04:15 | disposition home or self-care (01) ==
LOC: ER 01:36
DX: Z20.828 Contact with and (suspected) exposure to other viral communicable diseases (principal); R05 Cough; R06.02 Shortness of breath; R09.81 Nasal congestion; Z72.0 Tobacco use; Z88.6 Allergy status to analgesic agent
CPT/HCPCS: 71045; 93005; 96360; 99285; J7030; U0003